=== PATIENT | female | born 1950 | race Caucasian/White ===

== ENCOUNTER → 2018-05-08 | Outpatient (CLI) | payer OTHER | LOC: BMCIMAGING 13:20 | PROVIDERS: ATTEND Internal Medicine | DX: Z12.31 Encounter for screening mammogram for malignant neoplasm of breast (principal); Z13.820 Encounter for screening for osteoporosis; Z78.0 Asymptomatic menopausal state; M81.0 Age-related osteoporosis without current pathological fracture ==